=== PATIENT | male | born 1945 | race Caucasian/White ===

== ENCOUNTER 2022-02-06 06:15 | Inpatient (IN) ==
[~2022-02-06 06:15] MED LIST: Acetaminophen IV 1,000 MG/100 ML BAG IVPB ONE; Famotidine 20 MG/2 ML VIAL IVP ONE
[2022-02-06] MEDS ORDERED: CeFAZolin Syr 2,000MG/20 ML 2,000 MG/20 ML SYRINGE IVPB ONE (07:03)
[2022-02-06] MEDS ORDERED: *HR* Succinylcholine 200 MG/10 ML VIAL IVP ONE (07:12)
[2022-02-06] MEDS ORDERED: *HR* Rocuronium Bromide 50 MG/5 ML VIAL ONE ×2 (07:12→09:01)
[2022-02-06] MEDS ORDERED: Ondansetron 4 MG/2 ML VIAL ONE (07:12)
[2022-02-06] MEDS ORDERED: Lidocaine -MPF 2% 2 ML VIAL ONE (07:12)
[2022-02-06] MEDS ORDERED: Ringers Solution, Lactated 1,000 ML IVC SCH (07:15)
[2022-02-06] MEDS ORDERED: *HR* Propofol 200 MG/20 ML VIAL IVP ONE (07:16)
[2022-02-06] MEDS ORDERED: *HR* FentaNYL (PF) 100 MCG/2 ML VIAL ONE (07:16)
[2022-02-06] MEDS ORDERED: Mannitol 20% 100 GM/500 ML IV.SOLN IVC ONE (07:19)
[2022-02-06] MEDS ORDERED: Bupivacaine-MPF 0.25% 10 ML VIAL ONE ×2 (07:22→07:23)
[2022-02-06] MEDS ORDERED: Hydrocortisone Sodium Succ 100 MG/2 ML VIAL IVP ONE (07:28)
[2022-02-06] MEDS ORDERED: Nitroglycerin 0.4 MG TAB.SUBL SL PRN (07:55)
[2022-02-06] MEDS ORDERED: *HR* HYDROmorphone PF 0.5 MG/0.5 ML SYRINGE IVP PRN (07:55)
[2022-02-06] MEDS ORDERED: Naloxone 0.4 MG/ML INJ IVP PRN ×2 (07:55→13:26)
[2022-02-06] MEDS ORDERED: *HR* FentaNYL (PF) 100 MCG/2 ML VIAL IVP PRN (07:55)
[2022-02-06] MEDS ORDERED: Ondansetron 4 MG/2 ML VIAL IVP PRN ×2 (07:55→13:26)
[2022-02-06] MEDS ORDERED: Ipratropium Neb 0.5 MG NEBULIZER IH PRN (07:55)
[2022-02-06] MEDS ORDERED: Albuterol 2.5 MG/3 ML NEBULIZER IH PRN (07:55)
[2022-02-06] MEDS ORDERED: *HR* HYDROMORPHONE 2 MG/ML VIAL ONE (09:25)
[2022-02-06] MEDS ORDERED: Sugammadex Sodium 200 MG/2 ML VIAL IV ONE (11:49)
[2022-02-06] MEDS ORDERED: *HR* Belladonna Alkaloids/Opium 30 MG RECTAL SUPPOSITORY RC PRN (13:26)
[2022-02-06] MEDS ORDERED: *HR* OxyCODONE Immed Rel 5 MG TABLET PO PRN (13:26)
[2022-02-06] MEDS ORDERED: *HR* HYDROcodone/Acet 5/325 mg TABLET PO PRN (13:26)
[2022-02-06] MEDS: CeFAZolin 2 GM/120 ML BAG IVPB SCH ×2 (16:58→23:58)
[2022-02-06] MEDS: 0.9 % Sodium Chloride 1,000 ML IVC SCH (16:58)
[2022-02-06] MEDS: Acetaminophen IV 1,000 MG/100 ML BAG IVPB SCH ×2 (16:59→23:59)
[2022-02-07] MEDS: 0.9 % Sodium Chloride 1,000 ML IVC SCH (06:16)
[2022-02-07 06:17] LABS: Basophils % 0.2 %; Hematocrit 40.1 % (37.5-50.1); Hemoglobin 13.6 g/dL (12.9-16.9); Immature Granulocytes % 0.3 % (0-4); Lymphocytes # 1.3 K/mcL (0.6-4.6); Lymphocytes % 10.2 %; Mean Corpuscular HGB Conc 33.9 g/dL (31.6-35.5); Mean Corpuscular Volume 97.3 fL (83.0-100.0); Mean Platelet Volume 10.5 fL (9.4-12.4); Monocytes # 1.2 K/mcL (0.0-1.3); Monocytes % 9.3 %; Neutrophils # 10.5 K/mcL (1.6-8.9); Platelet Count 250 K/mcL (140-400); Red Blood Count 4.12 M/mcL (4.19-5.50); Red Cell Distribution Width 13.1 % (11.5-14.5); White Blood Count 13.1 K/mcL (4.3-11.1)
[2022-02-07 06:42] LABS: BUN/Creatinine Ratio 14 (6-26); Blood Urea Nitrogen 15 mg/dL (8-23); Calcium 8.5 mg/dL (8.6-10.3); Carbon Dioxide 32 mEq/L (23-29); Chloride 102 mEq/L (98-107); Glucose 112 mg/dL (70-105); Osmolality,Calculated 290 (280-300); Potassium 4.9 mEq/L (3.5-5.1); Sodium 139 mEq/L (136-145); eGFR For African Americans > 60 (> 60); eGFR For Non-African Americans > 60 (> 60)
[2022-02-07 07:15] VITALS: BP 122/74; PULSE 75; TEMP 97.9; O2SAT 97
[2022-02-07] MEDS: Acetaminophen IV 1,000 MG/100 ML BAG IVPB SCH (07:48)
[2022-02-07] MEDS ORDERED: Tiotropium 10 INH DOSE IH SCH (10:00)
== END 2022-02-07 12:07 | disposition home or self-care (01) | DRG 660 ==
LOC: SAMDAY 06:15 → 3ANU 13:17
PROVIDERS: ADMIT Urology; ATTEND Urology